=== PATIENT | female | born 1970 | race Two or more races ===

== ENCOUNTER 2017-02-22 19:45 | Emergency (ER) | payer OTHER ==
--- NOTE | 2017-02-22 19:58 | EDPHY ---
H & P Source: Patient Exam Limitations: No limitations Time Seen by Provider: 02/22/17 19:57 HPI/ROS: HPI: This is a 46-year-old female who presents with Chief Complaint: Dizzy since yesterday Location: Head Quality: Dizziness Duration: 2 days Signs and Symptoms: no shortness of breath at rest, no shortness of breath on exertion, no cough, no chest pain, no palpitations, no lower extremity edema, no wheezing, no orthopnea, no paroxysmal nocturnal dyspnea, no fever, no injury/ trauma, no hemoptysis, no nasal congestion, no ear fullness Timing: Intermittent, worse with moving head back and forth and changing positions Severity: Twck-ad-lenferov Context: Patient has a history of iron deficiency anemia diagnosed 3 months ago at the [facility], insulin-dependent diabetes mellitus presents with 2 day history of dizziness that is exacerbated by moving her head back and forth or changing positions from sitting to standing. She reports that a similar occurrence occurred 2 months ago when she was diagnosed with anemia. She is currently taking iron supplementation daily and reports compliance. She denies fever/upper respiratory symptoms/headache/neck stiffness/syncope. Her last menstrual period was 6 days ago. She has tried nothing for the symptoms. Patient reports that she take 6 U of NovoLog before every meal and 56 U of Levemir at night along with 2 tablets of metformin. She reports that her hemoglobin A1c 2 months ago was 8.3 which is significantly improved from prior. She also admits that she is under considerable anxiety and stress and her symptoms worsen during these times. Denies fever/urinary symptoms/neck stiffness/headache/vision changes/photophobia. Modifying Factors: None Comment: ROS: see HPI Constitutional: No fever, no chills, no weight loss Eyes: No blurred vision Respiratory: No shortness of breath, no cough Cardiovascular: No chest pain, no palpitations, no lower extremity edema Gastrointestinal: No nausea, no vomiting, no diarrhea Genitourinary: No dysuria Extremities: No myalgias Neurologic: No weakness, no numbness Skin: No rashes Hematologic: No bruising, no bleeding MEDICAL/SURGICAL/SOCIAL HISTORY: Medical history: Iron deficiency anemia Surgical history: Denies Social history: with children CONSTITUTIONAL: Extremely well-appearing adult female, awake and alert , no obvious distress HEENT: Atraumatic and normocephalic, PERRL, EOMI. Tympanic membranes clear. Oropharynx clear, no exudate and moist pink mucosa. Airway patent. No lymphadenopathy. No meningismus. Cardiovascular: Normal S1/S2, regular rate, regular rhythm, without murmur rub or gallop. PULMONARY/CHEST: Symmetrical and nontender. Clear to auscultation bilaterally. Good air movement. No accessory muscle usage. ABDOMEN: Soft, nondistended, nontender, no rebound, no guarding, no peritoneal signs, no masses or organomegaly. No CVAT. EXTREMITIES: 2/2 pulses, strength 5/5, no deformities, no clubbing, no cyanosis or edema. NEUROLOGICAL: no focal neuro deficits. GCS 15. Reproduction of dizziness with Bienvenido-Hallpike test. One beat nystagmus noted. SKIN: Warm and dry, no erythema. no rash. Good capillary refill. (Shakira Rangel) Constitutional: Initial Vital Signs Temperature (C) 36.8 C 02/22/17 19:55 Heart Rate 68 02/22/17 19:55 Respiratory Rate 16 02/22/17 19:55 Blood Pressure 97/69 L 02/22/17 19:55 O2 Sat (%) 94 02/22/17 19:55 O2 Delivery Mode Room Air Allergies/Adverse Reactions: No Known Allergies Allergy (Unverified 03/17/12 15:07) Home Medications: Medication Instructions Recorded Miscellaneous Medical Supply [NO 1 ea MIS AD 02/10/12 HOME MEDS] Insulin Syringe 02/22/17 Meclizine HCl 25 mg PO Q8 PRN #12 tablet 02/22/17 Metformin HCl 02/22/17 Medical Decision Making - Diagnostics EKG Interpretation: 12 lead EKG: Indication: Dizziness Rhythm: Normal sinus rhythm, rate 67 beats per minute [place]: Normal Intervals: Normal QRS: Normal ST segments: Normal T segments: Normal INTERPRETATION: No acute ischemic changes/arrhythmia The 12 lead EKG was interpreted by myself and with attending. (Shakira Rangel) ED Course/Re-evaluation: The patient was evaluated and managed by the physician's cook's assistant. My cosignature indicates that I reviewed the chart and I agree with the findings and plan of care as documented. I am the secondary supervising physician. ( Radha Camacho) EKG, labs, urinalysis, IV fluids, oral medications provided Patient given 1 L normal saline and p.o. meclizine with adequate relief Orthostatics within normal limits the patient had increased dizziness. Serum glucose elevated 287; patient is she has not taken any insulin today. No signs of DKA. No signs of anemia/acute kidney injury/thyroid disease/acute coronary syndrome/ elevated LFTs Reassessed patient; reports feeling considerably better. Does not want to wait to give urine sample which I deem is reasonable as has no urinary symptoms This patient was seen under the supervision of my secondary supervising physician. I evaluated care for this patient independently. Discussed this patient with Dr. Camacho who did not see the patient. Patient's presentation, labs/imaging, treatment and plan of care were discussed with secondary supervising physician. (Shakira Rangel) Differential Diagnosis: Dizziness including but not limited to peripheral and central causes of vertigo , orthostatic causes including dehydration, and blood loss. (Shakira Rangel) - Data Points Laboratory Results: Laboratory Results 02/22/17 20:07 02/22/17 20:07 02/22/17 02/22/17 20:07 20:07 WBC 8.03 10^3/uL 10^3/uL (3.80-9.50) RBC 5.88 10^6/uL H 10^6/uL (4.18-5.33) Hgb 14.0 g/dL g/dL (12.6-16.3) Hct 44.0 % % (38.0-47.0) MCV 74.8 fL L fL (81.5-99.8) MCH 23.8 pg L pg (27.9-34.1) MCHC 31.8 g/dL L g/dL (32.4-36.7) RDW 15.3 % H % (11.5-15.2) Plt Count 290 10^3/uL 10^3/uL (150-400) MPV 9.8 fL fL (8.7-11.7) Neut % (Auto) 67.4 % % (39.3-74.2) Lymph % (Auto) 24.5 % % (15.0-45.0) [place] % (Auto) 6.5 % % (4.5-13.0) Eos % (Auto) 0.7 % % (0.6-7.6) Baso % (Auto) 0.5 % % (0.3-1.7) Nucleat RBC Rel Count 0.0 % % (0.0-0.2) Absolute Neuts (auto) 5.41 10^3/uL 10^3/uL (1.70-6.50) Absolute Lymphs (auto) 1.97 10^3/uL 10^3/uL (1.00-3.00) Absolute Monos (auto) 0.52 10^3/uL 10^3/uL (0.30-0.80) Absolute Eos (auto) 0.06 10^3/uL 10^3/uL (0.03-0.40) Absolute Basos (auto) 0.04 10^3/uL 10^3/uL (0.02-0.10) Absolute Nucleated RBC 0.00 10^3/uL 10^3/uL (0-0.01) Immature Gran % 0.4 % % (0.0-1.1) Immature Gran # 0.03 10^3/uL 10^3/uL (0.00-0.10) Sodium 139 mEq/L mEq/L (134-144) Potassium 4.1 mEq/L mEq/L (3.5-5.2) Chloride 103 mEq/L mEq/L (97-110) Carbon Dioxide 25 mEq/l mEq/l (22-31) Anion Gap 11 mEq/L mEq/L (8-16) BUN 8 mg/dL mg/dL (7-23) Creatinine 0.5 mg/dL L mg/dL (0.6-1.0) Estimated GFR > 60 Glucose 287 mg/dL H mg/dL (70-100) Calcium 9.4 mg/dL mg/dL (8.5-10.4) Magnesium 1.9 mg/dL mg/dL (1.6-2.3) Total Bilirubin 0.4 mg/dL mg/dL (0.1-1.4) Conjugated Bilirubin 0.2 mg/dL mg/dL (0.0-0.5) Unconjugated Bilirubin 0.2 mg/dL mg/dL (0.0-1.1) AST 16 IU/L IU/L (14-46) ALT 26 IU/L IU/L (9-52) Alkaline Phosphatase 119 IU/L IU/L (38-126) Troponin I < 0.012 ng/mL ng/mL (0.000-0.034) Total Protein 7.0 g/dL g/dL (6.3-8.2) Albumin 3.9 g/dL g/dL (3.5-5.0) TSH 0.837 uIU/mL uIU/mL (0.465-4.680) Medications Given: Discontinued Medications Sodium Chlor[place] (Ns) 1,000 mls @ 0 mls/hr IV ONCE ONE; Wide Open PRN Reason: Protocol Stop: 02/22/17 20:30 Last Admin: 02/22/17 20:41 Dose: 1,000 mls Meclizine HCl (Meclizine Hcl) 25 mg PO EDNOW ONE Stop: 02/22/17 20:31 Last Admin: 02/22/17 20:40 Dose: 25 mg Departure - Departure Disposition: Home, Routine, Self-Care Clinical Impression: Diabetes mellitus with hyperglycemia, with long-term current use of insulin Qualifiers: Diabetes mellitus type: type 2 Qualified Code(s): E11.65 - Type 2 diabetes mellitus with hyperglycemia; Z79.4 - [facility]CI (current) use of insulin; Z79.4 - [facility]CI (current) use of insulin; Z79.4 - intermediate frame tender (current) use of insulin ; Z79.4 - [facility]CI (current) use of insulin Benign paroxysmal positional vertigo Qualifiers: Laterality: bilateral Qualified Code(s): H81.13 - Benign paroxysmal vertigo, bilateral Condition: Good Instructions: Benign Paroxysmal Positional Vertigo (ED), Dizziness (ED), Diabetic Hyperglycemia (ED) Additional Instructions: Please be compliant on diabetic diet and take insulin as prescribed. Use meclizine every 8 hr as needed for dizziness. Change positions slowly to avoid any falls. Referrals: Neetu Kwan PA [Primary Care Provider] - 5-7 days, if not improved Prescriptions: Meclizine HCl 25 mg PO Q8 PRN #12 tablet PRN Reason: Dizziness
--- NOTE | 2017-02-22 20:06 | CPEKG ---
Heart Rate: 67 RR Interval: 896 P-R Interval: 172 QRSD Interval: 84 QT Interval: 384 QTC Interval: 406 P [place]: 25 QRS [place]: 52 T Wave [place]: 49 EKG Severity - NORMAL ECG - EKG Impression: SINUS RHYTHM Electronically Signed By: Radha Camacho 22-Feb-2017 22:16:57
[2017-02-22 20:18] VITALS: RESP 16; TEMP 98.2
[2017-02-22] MEDS ORDERED: NS 1,000 ML IV ONE (20:29)
[2017-02-22] MEDS ORDERED: MECLIZINE HCL 25 MG TAB PO ONE ×2 (20:30→21:48)
[2017-02-22 20:40] LABS: PLATELET COUNT 290 10^3/uL (150-400)
[2017-02-22 22:07] VITALS: BP 127/70; PULSE 69; O2SAT 95
== END 2017-02-22 22:06 | disposition home or self-care (01) ==
DX: H81.13 Benign paroxysmal vertigo, bilateral (principal); E11.65 Type 2 diabetes mellitus with hyperglycemia; E86.9 Volume depletion, unspecified; Z79.4 Long term (current) use of insulin; Z79.84 Long term (current) use of oral hypoglycemic drugs